=== PATIENT | female | born 1955 | race Caucasian/White ===

== ENCOUNTER 2020-03-08 16:48 | Outpatient (CLI) | payer MEDICARE | END 2020-03-08 16:49 | disposition home or self-care (01) | LOC: COV 16:48 | PROVIDERS: ATTEND Family Medicine | DX: R06.02 Shortness of breath (principal); M79.10 Myalgia, unspecified site; R53.83 Other fatigue; J02.9 Acute pharyngitis, unspecified; R19.7 Diarrhea, unspecified | CPT/HCPCS: 81599 ==

== ENCOUNTER 2020-03-21 10:48 | Emergency (ER) | payer MEDICARE, OTHER ==
[2020-03-21 10:57] VITALS: BP 164/63
--- NOTE | 2020-03-21 11:12 | ED Physician Documentation ---
PD HPI UPPER EXT INJURY - Stated complaint Stated Complaint: RT WRIST INJURY - Chief complaint Chief Complaint: Trauma Ext - History obtained from History obtained from: Patient - History of Present Illness Location: Right, Wrist Type of injury: Fall Where injury occurred: Home Timing - onset: Today (shortly [employer]) Timing - details: Abrupt onset, Still present (fell and landed to right wrist, with swelling promptly and pain on ROM.) Improved by: Rest Worsened by: Moving, Palpating Associated symptoms: Swelling. No: Weakness, Numbness Similar symptoms before: Has not had sx before Recently seen: Not recently seen Review of Systems Skin: denies: Abrasion (s), Laceration (s) Neurologic: denies: Focal weakness, Numbness, Altered mental status, Headache, Head injury PD PAST MEDICAL HISTORY - Past Medical History Past Medical History: No Musculoskeletal: None - Present Medications Home Medications: Ambulatory Orders Medication Instructions Recorded Confirmed Hydrocodone/Acetaminophen [[place] 1 each PO TID PRN #12 tablet 03/21/20 5-325 Tablet] - Allergies Allergies/Adverse Reactions: Allergies Allergy/AdvReac Type Severity Reaction Status Date / Time Sulfa (Sulfonamide Allergy Rash Verified 03/21/20 10:57 Antibiotics) - Living Situation Living Situation: reports: With spouse/s.o. Living Arrangement: reports: At home - Social History Does the pt smoke?: No Smoking Status: Never smoker PD ED PE NORMAL - Vitals Vital signs reviewed: Yes - General General: Alert and oriented X 3, No acute distress (she seems remarkably calm with the wrist deformity and declines any pain meds other than TYlenol/Ibuprofen. ), Well developed/nourished Results - Vitals Vitals: Vital Signs - 24 hr 03/21/20 10:52 Temperature 36.7 C Heart Rate 95 Respiratory 20 Rate Blood Pressure 164/63 H O2 Saturation 99 Oxygen O2 Source Room air - Rads (name of study) right wrist Radiology: Prelim report reviewed (colles fracture with slight dorsal angulation. ), See rad report Procedures - Splint (location) right wrist Splint applied by: Nurse Type of splint: Fiberglass, Sugar tong Other: Patient tolerated well (she said comfortable at first but then felt some pressure in palm area, so nurse rewrapped it and it felt better.), No complications, Neurovascular intact, Sling provided PD MEDICAL DECISION MAKING - ED course Complexity details: considered differential (clinically high suspicion for fracture.), d/w patient Departure - Departure Disposition: 01 Home, Self Care Clinical Impression: Accidental fall Qualifiers: Encounter type: initial encounter Qualified Code(s): W19.XXXA - Unspecified fall, initial encounter Colles' fracture Qualifiers: Encounter type: initial encounter Fracture type: closed Laterality: right Qualified Code(s): S52.531A - Colles' fracture of right radius, initial encounter for closed fracture Condition: Stable Record reviewed to determine appropriate education?: Yes Instructions: ED Fx Colles Wrist No Redu Requ Follow-Up: Gee Vallecillo MD [Provider Admit Priv/Credential] - Prescriptions: Hydrocodone/Acetaminophen [[place] 5-325 Tablet] 1 each PO TID PRN #12 tablet PRN Reason: Pain Comments: Keep the splint on and use a sling to help elevate the wrist. Elevate ice and rest the wrist to reduce swelling over the next several days to week in particular. Consider anti-inflammatory such as ibuprofen or naproxen 2-3 times daily and add Tylenol if needed for pain. I wrote a prescription for stronger pain medicine should come to that point that you need something stronger. Follow-up with orthopedics later this week or early next week, call Sunday for an appointment for reevaluation and switching from the splint to a cast. This will take about 6 weeks for healing in the splint/cast. Discharge Date/Time: 03/21/20 12:37
--- NOTE | 2020-03-21 11:55 | XRAY Report ---
Reason: fall/trauma Procedure Date: 03/21/2020 Accession Number: [id number] / [id number] Procedure: XR - Wrist 3 View RT CPT Code: Final Report FULL RESULT: EXAM: RIGHT WRIST RADIOGRAPHY EXAM DATE: 03/21/2020 11:16 AM. CLINICAL HISTORY: Fall/trauma. Slipped and fell onto right hand/wrist. COMPARISON: None. TECHNIQUE: 3 views. FINDINGS: Bones: Mildly impacted and comminuted transverse distal radial fracture, with minimal dorsal angulation at the fracture site. No apparent intra-articular extension. Subtle linear lucency along the articular surface of the distal ulna. Joints: Normal alignment. Soft Tissues: Swelling overlying the fracture site. IMPRESSION: 1. Mildly impacted and comminuted, minimally angulated transverse distal radial fracture. 2. Subtle linear lucency along the articular surface of the distal ulna, which could represent additional nondisplaced fracture site or artifact such as prominent vascular channel. RADIA
== END 2020-03-21 12:37 | disposition home or self-care (01) ==
LOC: ED 10:48
DX: S52.531A Colles' fracture of right radius, initial encounter for closed fracture (principal); W19.XXXA Unspecified fall, initial encounter; Y92.009 Unspecified place in unspecified non-institutional (private) residence as the place of occurrence of the external cause
CPT/HCPCS: 29105; 99281

== ENCOUNTER 2020-04-12 11:53 | Outpatient (CLI) | payer MEDICARE, OTHER ==
--- NOTE | 2020-04-12 13:09 | XRAY Report ---
Reason: FOUR WEEKS POST FRACUTRE Procedure Date: 04/12/2020 Accession Number: [id number] / [id number] Procedure: XR - Wrist 3 View RT CPT Code: Final Report FULL RESULT: PROCEDURE: Wrist 3 View RT INDICATIONS: FOUR WEEKS POST FRACUTRE TECHNIQUE: 3 views of the wrist were acquired. COMPARISON: None FINDINGS: Bones: There is a mildly displaced and posteriorly attenuated fracture of the distal radius which is mildly impacted. Scaphoid view: Not requested Soft tissues: No suspicious soft tissue calcifications. IMPRESSION: Colles' fracture. Reviewed by: Bautista Jules MD on 04/12/2020 1:05 PM PDT Approved by: Bautista Jules MD on 04/12/2020 1:05 PM PDT Station ID: [id number]
== END 2020-04-12 11:54 | disposition home or self-care (01) ==
LOC: DI 11:53
PROVIDERS: ATTEND Nurse Practitioner Family
DX: S52.531D Colles' fracture of right radius, subsequent encounter for closed fracture with routine healing (principal)

== ENCOUNTER 2022-04-03 06:46 | Outpatient (CLI) | payer MEDICARE, OTHER ==
--- NOTE | 2022-04-03 11:40 | Ultrasound Report ---
PROCEDURE: Retroperitoneal INDICATIONS: ABN KIDNEY FUNCTION TEST TECHNIQUE: Real-time scanning was performed of the kidneys and bladder, with image documentation. COMPARISON: None FINDINGS: Kidneys: Kidneys are normal in size. Right kidney measures 10.8 cm long; left kidney measures 10.9 cm long. Right renal cortical thickness is 1.2 cm; left renal cortical thickness is 1.3 cm. Renal c ortical echotexture is normal. No hydronephrosis or nephrolithiasis. No suspicious solid mass lesio ns. Bladder: Pre-void bladder volume is 148.7 mL. Post-void residual is 119.4 mL. Pre-void images demo nstrate no intraluminal masses or stones. On pre-void images, bilateral ureteral jets are noted with color Doppler interrogation. (Of note, ureteral jets may not be detectable in up to 25% of cases du e to insufficient differences in specific gravity between ureteral and bladder urine). Miscellaneous: No free pelvic fluid. IMPRESSION: 1. Normal-sized kidneys with no evidence of hydronephrosis. 2. Note made of moderate post void residual, of uncertain significance. Reviewed by: Homero Holland MD on 04/03/2022 11:39 AM PDT Approved by: Homero Holland MD on 04/03/2022 11:39 AM PDT Station ID: [id number]
== END 2022-04-03 06:47 | disposition home or self-care (01) ==
LOC: DI 06:46
PROVIDERS: ATTEND Naturopath
DX: R79.9 Abnormal finding of blood chemistry, unspecified (principal); R22.43 Localized swelling, mass and lump, lower limb, bilateral

== ENCOUNTER 2022-10-18 08:21 | Emergency (ER) | payer MEDICARE, OTHER ==
--- NOTE | 2022-10-18 09:02 | ED Physician Documentation ---
PD HPI FEMALE - Stated complaint Stated Complaint: KIDNEY PX - Chief complaint Chief Complaint: General - History obtained from History obtained from: Patient - History of Present Illness Timing - onset: How many days ago (5) Timing - duration: Days (5) Timing - details: Abrupt onset (onset while on trip with family members to [facility] [employer] of fevers/malaise/ aches, particularly right flank pain. Mild dysuria. No diarrhea. had nausea with soem vomiting the first day. Less PO intake due to continued nausea. Returned home last evening. Feeling heart skipping/racing the past 4 days), Still present Associated symptoms: Fever, Back pain, Urinary frequency Similar symptoms before: Has not had sx before Recently seen: Clinic (seen in [place] with doctor coming to her hotel room. Dx with possible UTI given fever, flank pain, and urinary frequency. Consideration of URI/flu as well. No testing done. Rx of cefixima antibiotic. patient noted heart feeling racing and irregular, at times up to 140 rate by her watch heart monitor) Review of Systems Constitutional: reports: Fever, Chills, Myalgias Nose: reports: Congestion. denies: Rhinorrhea / runny nose Throat: denies: Sore throat Respiratory: reports: Cough. denies: Wheezing GI: reports: Nausea, Vomiting, Diarrhea. denies: Abdominal Pain : reports: Frequency. denies: Discharge Skin: denies: Rash Musculoskeletal: reports: Back pain (right flank mainly but somewhat general back muscle aches.) Neurologic: reports: Generalized weakness. denies: Near syncope, Altered mental status, Headache PD PAST MEDICAL HISTORY - Past Medical History Past Medical History: Yes Cardiovascular: High cholesterol Respiratory: None Neuro: None Endocrine/Autoimmune: HyPOthyroidism GI: None TOUR AGENT: None : None HEENT: None Psych: None Musculoskeletal: None Derm: None - Past Surgical History Past Surgical History: No - Present Medications Home Medications: Ambulatory Orders Medication Instructions Recorded Confirmed diltiaZEM CD [Cardizem Cd] 120 mg PO DAILY 15 Days #15 cap 10/18/22 diltiaZEM [Cardizem] 60 mg PO Q8H PRN #20 tablet 10/18/22 - Allergies Allergies/Adverse Reactions: Allergies Allergy/AdvReac Type Severity Reaction Status Date / Time Sulfa (Sulfonamide Allergy Rash Verified 10/18/22 08:38 Antibiotics) NSAIDS (Non-Steroidal AdvReac Nausea Verified 10/18/22 08:39 Anti-Inflamma - Social History Does the pt smoke?: No Smoking Status: Never smoker Does the pt drink ETOH?: Yes Does the pt have substance abuse?: No - Immunizations Immunizations are current?: No Immunizations: Other immun not current PD ED PE NORMAL - Vitals Vital signs reviewed: Yes - General General: Alert and oriented X 3, No acute distress, Well developed/nourished - Neck Neck: Supple, no meningeal sign, No adenopathy - Cardiac Cardiac: No murmur. No: RRR (irregular and variably fast at 80-115 range. ) - Respiratory Respiratory: No respiratory distress, Clear bilaterally - Abdomen Abdomen: Soft, Non tender - Back Back: No CVA TTP, No spinal TTP - Derm Derm: Normal color, Warm and dry - Extremities Extremities: No deformity, No tenderness to palpate, No edema, No calf tenderness / cord - Neuro Neuro: Alert and oriented X 3, No motor deficit, Normal speech Results - Vitals Vitals: Vital Signs - 24 hr 10/18/22 10/18/22 10/18/22 08:39 10:24 11:41 Temperature 36.7 C Heart Rate 92 123 H 125 H Respiratory 16 17 14 Rate Blood Pressure 156/79 H 150/97 H 118/76 O2 Saturation 100 100 95 Oxygen O2 Source Room air - EKG (time done) 09:25 Rate: Rate (enter#) (108) Rhythm: Atrial fibrillation Cassatt: Normal QRS: Normal Ischemia: Normal ST segments. No: ST elevation c/w ischemia, ST depression - Labs Labs: Laboratory Tests 10/18/22 10/18/22 10/18/22 09:00 09:39 09:39 WBC 3.3 L RBC 4.74 Hgb 13.7 Hct 40.1 MCV 84.6 MCH 28.9 MCHC 34.2 RDW 12.3 Plt Count 166 MPV 9.7 Neut # (Auto) 1.9 Lymph # (Auto) 1.0 L Waldo # (Auto) 0.4 Eos # (Auto) 0.0 Baso # (Auto) 0.0 Absolute Nucleated RBC 0.00 Nucleated RBC % 0.0 Sodium 130 L Potassium 4.2 Chloride 100 L Carbon Dioxide 25 Anion Gap 5.0 L BUN 15 Creatinine 0.6 Estimated GFR (MDRD) 99 Glucose 102 H Calcium 9.0 Magnesium 1.8 Total Bilirubin 0.5 AST 21 ALT 24 Alkaline Phosphatase 82 B-Natriuretic Peptide Total Protein 6.5 L Albumin 3.5 Globulin 3.0 Albumin/Globulin Ratio 1.2 Lipase 28 Urine Color YELLOW Urine Clarity CLEAR Urine pH 6.0 Ur Specific Dequincy <=1.005 Urine Protein NEGATIVE Urine Glucose (UA) NEGATIVE Urine Ketones NEGATIVE Urine Occult Blood NEGATIVE Urine Nitrite NEGATIVE Urine Bilirubin NEGATIVE Urine Urobilinogen 0.2 (NORMAL) Ur Leukocyte Esterase TRACE H Urine RBC 0-5 Urine WBC 0-3 Ur Squamous Epith Cells FEW Squamous Urine Bacteria Few Ur Microscopic Review INDICATED Urine Culture Comments INDICATED Nasal Adenovirus (PCR) Nasal B. parapertussis DNA (PCR) Nasal Coronavir 229E PCR Nasal Coronavir HKU1 PCR Nasal Coronavir NL63 PCR Nasal Coronavir OC43 PCR Nasal Enterovir/Rhinovir PCR Nasal Influenza B PCR Nasal Influenza A PCR Nasal Parainfluen 1 PCR Nasal Parainfluen 2 PCR Nasal Parainfluen 3 PCR Nasal Parainfluen 4 PCR Nasal RSV (PCR) Nasal B.pertussis DNA PCR Nasal C.pneumoniae (PCR) [place] Human Metapneumo PCR Nasal M.pneumoniae (PCR) Nasal SARS-CoV-2 (PCR) 10/18/22 10/18/22 09:39 10:20 WBC RBC Hgb Hct MCV MCH MCHC RDW Plt Count MPV Neut # (Auto) Lymph # (Auto) Waldo # (Auto) Eos # (Auto) Baso # (Auto) Absolute Nucleated RBC Nucleated RBC % Sodium Potassium Chloride Carbon Dioxide Anion Gap BUN Creatinine Estimated GFR (MDRD) Glucose Calcium Magnesium Total Bilirubin AST ALT Alkaline Phosphatase B-Natriuretic Peptide 48 Total Protein Albumin Globulin Albumin/Globulin Ratio Lipase Urine Color Urine Clarity Urine pH Ur Specific Dequincy Urine Protein Urine Glucose (UA) Urine Ketones Urine Occult Blood Urine Nitrite Urine Bilirubin Urine Urobilinogen Ur Leukocyte Esterase Urine RBC Urine WBC Ur Squamous Epith Cells Urine Bacteria Ur Microscopic Review Urine Culture Comments Nasal Adenovirus (PCR) NOT DETECTED Nasal B. parapertussis DNA (PCR) NOT DETECTED Nasal Coronavir 229E PCR NOT DETECTED Nasal Coronavir HKU1 PCR NOT DETECTED Nasal Coronavir NL63 PCR NOT DETECTED Nasal Coronavir OC43 PCR NOT DETECTED Nasal Enterovir/Rhinovir PCR NOT DETECTED Nasal Influenza B PCR NOT DETECTED Nasal Influenza A PCR NOT DETECTED Nasal Parainfluen 1 PCR NOT DETECTED Nasal Parainfluen 2 PCR NOT DETECTED Nasal Parainfluen 3 PCR NOT DETECTED Nasal Parainfluen 4 PCR NOT DETECTED Nasal RSV (PCR) NOT DETECTED Nasal B.pertussis DNA PCR NOT DETECTED Nasal C.pneumoniae (PCR) NOT DETECTED [place] Human Metapneumo PCR NOT DETECTED Nasal M.pneumoniae (PCR) NOT DETECTED Nasal SARS-CoV-2 (PCR) DETECTED A PD MEDICAL DECISION MAKING - ED course Complexity details: reviewed results (PCR showing covid. UA appears good without infection now. ), re-evaluated patient (heart rate is controlled around 85-110 variable. She does not want to take diltiazem regularly nor take doACs as would not want to have cardioversion. Will see if converts itself. Agrees to ASA, and her chADS2 score is low (2) so ASA only is okay. Prefers Cardizem PRN for faster rate. ), considered differential (some dehydrated. irregular HR, consider PVCs vs atrial fib. Can get ECG and labs. General symptoms sound likely Flu or COVID. PCR test. ), d/w patient ED course: I offered DOACs and daily diltiazem, but pt prefers not that approach. She is positive for Covid, so explains her symptoms previously. She states she has ivermectin at home that she might take (had taken some while on trip in [place] when got sick, as she states it is helpful for covID and Flu). UA is clear here but cannot exclude partly treated UTI so she can finish pO abx. Departure - Departure Disposition: 01 Home, Self Care Clinical Impression: COVID-19, Atrial fibrillation with controlled ventricular rate Condition: Stable Record reviewed to determine appropriate education?: Yes Instructions: ED Afib Prescriptions: diltiaZEM [Cardizem] 60 mg PO Q8H PRN #20 tablet PRN Reason: Tachycardia diltiaZEM CD [Cardizem Cd] 120 mg PO DAILY 15 Days #15 cap Comments: You are in atrial fibrillation and presumably have been for the last several days. Your viral panel test was positive for COVID which accounts for your fever and general weakness and likely what precipitated the current episode of A. fib (it sounds like you have had it episodically in the past). I would in dissipate this still being in fibrillation in the short-term and would suggest a long-acting calcium channel geremias for the next even up to 1 or 2 weeks. Subsequently or alternatively you can just use the short acting diltiazem when you are feeling the heart rate going particularly faster in order to control and modulate the rate of it. I would anticipate the atrial fibrillation resolving and being episodic in the future at which point you can do the short acting diltiazem when needed "pill in the pocket" method. I would suggest a baby aspirin daily to reduce your chance of clots and stroke related to the atrial fibrillation. Regarding the COVID, I would anticipate still being infectious over the next 4 to 5 days so self quarantine and stay well-hydrated and Tylenol if needed for fevers etc. Your urine sample looks normal at this point. Hard to tell whether there may have been an initial bladder infection. I would finish out the antibiotic course that you are on just in case. Your other basic electrolytes, kidney function, blood counts are normal. I sent your prescriptions to [facility] in [place]. Discharge Date/Time: 10/18/22 12:39
[2022-10-18 09:30] LABS: BILIRUBIN,URINE NEGATIVE (NEGATIVE); CLARITY,URINE CLEAR (CLEAR); GLUCOSE, URINE (UA) NEGATIVE (NEGATIVE); KETONES,URINE (UA) NEGATIVE (NEGATIVE); LEUKOCYTE ESTERASE, URINE TRACE (NEGATIVE); NITRITE,URINE NEGATIVE (NEGATIVE); OCCULT BLOOD,URINE NEGATIVE (NEGATIVE); PROTEIN,URINE NEGATIVE (NEGATIVE); UROBILINOGEN,URINE 0.2 (NORMAL) E.U./dL (NORMAL)
[2022-10-18 09:36] LABS: BACTERIA,URINE Few /HPF (None Seen); RBC,URINE 0-5 /HPF (0-5); SQUAMOUS EPITHELIAL CELL,UR FEW Squamous (<= Few); WBC,URINE 0-3 /HPF (0-5)
[2022-10-18 09:46] LABS: BASOPHILS % (AUTO) 0.3 %; EOSINOPHILS % (AUTO) 1.2 %; HCT - HEMATOCRIT 40.1 % (37.0-47.0); HGB - HEMOGLOBIN 13.7 g/dL (12.0-16.0); LYMPHOCYTES % (AUTO) 30.5 %; MEAN CORPUSCULAR HEMOGLOBIN 28.9 pg (27.0-31.0); MEAN CORPUSCULAR HGB CONC 34.2 g/dL (32.0-36.0); MEAN CORPUSCULAR VOLUME 84.6 fL (81.0-99.0); MEAN PLATELET VOLUME 9.7 fL (7.9-10.8); MONOCYTES # (AUTO) 0.4 10^3/uL (0.0-1.0); MONOCYTES % (AUTO) 11.1 %; NEUTROPHILS # (AUTO) 1.9 10^3/uL (1.5-6.6); NEUTROPHILS % (AUTO) 56.9 %; PLT - PLATELET COUNT 166 10^3/uL (130-450); RED BLOOD COUNT 4.74 10^6/uL (4.20-5.40); RED CELL DISTRIBUTION WIDTH 12.3 % (12.0-15.0); WHITE BLOOD COUNT 3.3 x10^3/uL (4.8-10.8)
[2022-10-18 10:06] LABS: ALBUMIN 3.5 g/dL (3.2-5.5); ALBUMIN/GLOBULIN RATIO 1.2 (1.0-2.2); BILIRUBIN,TOTAL 0.5 mg/dL (0.2-1.0); CREATININE 0.6 mg/dL (0.4-1.0); MAGNESIUM 1.8 mg/dL (1.7-2.8); POTASSIUM 4.2 mmol/L (3.5-5.0); TOTAL PROTEIN 6.5 g/dL (6.7-8.2)
[2022-10-18 11:42] VITALS: BP 118/76
[2022-10-18 11:46] LABS: B. PARAPERTUSSIS- RESP PCR PAN NOT DETECTED; B. PERTUSSIS- RESP PCR PANEL NOT DETECTED; C. PNEUMONIAE- RESP PCR PANEL NOT DETECTED; CORONAVIRUS 229E-RESP PCR NOT DETECTED; CORONAVIRUS HKU1-RESP PCR NOT DETECTED; CORONAVIRUS NL63-RESP PCR NOT DETECTED; CORONAVIRUS OC43-RESP PCR NOT DETECTED; HUMAN METAPNEUMOVIRUS NOT DETECTED; INFLUENZA A- RESP PCR PANEL NOT DETECTED; INFLUENZA B - RESP PCR PANEL NOT DETECTED; M. PNEUMONIAE- RESP PCR PANEL NOT DETECTED; PARAINFLUENZA VIRUS 1 NOT DETECTED; PARAINFLUENZA VIRUS 2 NOT DETECTED; PARAINFLUENZA VIRUS 3 NOT DETECTED; PARAINFLUENZA VIRUS 4 NOT DETECTED; RHINOVIRUS/ENTEROVIRUS NOT DETECTED; RSV- RESP PCR PANEL NOT DETECTED
[2022-10-18 11:53] LABS: SARS-CoV-2 -RESP PCR PANEL DETECTED
== END 2022-10-18 12:39 | disposition home or self-care (01) ==
LOC: ED 08:21
DX: U07.1 COVID-19 (principal); I48.91 Unspecified atrial fibrillation
CPT/HCPCS: 36415; 80053; 81001; 81003; 83690; 83735; 83880; 85025; 87086; 87633; 93005; 99283; 99284